=== PATIENT | female | born 1990 | race Caucasian/White ===

== ENCOUNTER 2018-04-29 12:36 | Emergency (ER) | payer SELFPAY ==
[~2018-04-29] VITALS: Ht 157.5 cm; Wt 80.0 kg
[2018-04-29 12:46] VITALS: BP 114/61; TEMP 98
[2018-04-29 13:14] LABS: COLLECTION METHOD CLEAN CATCH
[2018-04-29 13:19] LABS: MUCOUS Present /lpf; PH 5 (5-8); SQUAMOUS EPITHELIAL 0-2 /hpf; URINE APPEARANCE Clear; URINE BACTERIA None Seen /hpf; URINE BILIRUBIN Negative (NEGATIVE); URINE BLOOD Negative (NEGATIVE); URINE COLOR Yellow; URINE GLUCOSE Negative (NEGATIVE); URINE KETONE Negative (NEGATIVE); URINE LEUKOCYTE ESTERASE Negative (NEGATIVE); URINE NITRATE Negative (NEGATIVE); URINE PROTEIN(semi-quant) Negative (NEGATIVE); URINE UROBILINOGEN Negative (NEGATIVE)
[2018-04-29] MEDS ORDERED: NAPROSYN500 MG PO (15:33)
[2018-04-29] MEDS ORDERED: FLEXERIL 1010 MG/TAB PO (15:34)
[2018-04-29 15:42] VITALS: PULSE 72
== END 2018-04-29 15:44 | disposition home or self-care (01) ==
LOC: COL.ER 12:36
PROVIDERS: Emergency Medicine
DX: S39.012A Strain of muscle, fascia and tendon of lower back, initial encounter (principal); X50.0XXA Overexertion from strenuous movement or load, initial encounter
CPT/HCPCS: J1885

== ENCOUNTER 2018-09-07 17:10 | Emergency (ER) | payer SELFPAY ==
[~2018-09-07] VITALS: Ht 157.5 cm; Wt 90.0 kg
[~2018-09-07 17:10] MED LIST: FLEXERIL 1010 MG/TAB PO; NAPROSYN500 MG PO
[2018-09-07 17:21] VITALS: TEMP 97.1
[2018-09-07] MEDS ORDERED: PREDNISONE20 MG PO (18:29)
[2018-09-07] MEDS ORDERED: ZITHROMAX Z PA250 MG PO (18:29)
[2018-09-07 19:12] VITALS: BP 107/65; PULSE 94
== END 2018-09-07 19:13 | disposition home or self-care (01) ==
LOC: COL.ER 17:10
DX: J20.9 Acute bronchitis, unspecified (principal)
CPT/HCPCS: J7512

== ENCOUNTER 2018-11-27 21:29 | Emergency (ER) | payer SELFPAY ==
[~2018-11-27] VITALS: Ht 157.5 cm; Wt 81.8 kg
[~2018-11-27 21:29] MED LIST changes: +PREDNISONE20 MG PO; +ZITHROMAX Z PA250 MG PO
[2018-11-27 21:34] VITALS: TEMP 98.1
[2018-11-27 23:05] LABS: BASO # 0.1 (0.0-0.2); EOS # 0.2 (0.0-0.7); EOS % 1.9 % (0-4.0); GRAN # 5.1 (1.4-6.5); GRAN % 56.5 % (42.2-75.2); HEMATOCRIT 42.3 % (37.0-47.0); HEMOGLOBIN 14.4 g/dl (12.5-16.0); LYMPH # 3.2 (1.2-3.4); LYMPH % 35.1 % (20.0-51.0); MEAN CELL VOLUME 90 fl (80.0-100.0); MEAN CORPUSCULAR HEMOGLOBIN 31 pg (27.0-31.0); MEAN CORPUSCULAR HGB CONC 34 g/dl (33.0-37.0); MEAN PLATELET VOLUME 10.3 fl (7.4-10.4); MONO # 0.4 (0.1-0.6); MONO % 4.8 % (1.7-9.3); PLATELET COUNT 318 K/mm3 (130-400); RED BLOOD COUNT 4.72 M/mm3 (4.10-5.30)
[2018-11-27 23:13] LABS: ALBUMIN 3.6 gm/dL (3.5-5.0); BILIRUBIN,TOTAL 0.3 mg/dL (0.0-1.0); CALCIUM 8.5 mg/dL (8.4-10.2); CREATININE, serum 0.7 (0.52-1.25); POTASSIUM 3.5 mmol/L (3.4-5.0); TOTAL PROTEIN 6.2 gm/dL (6.4-8.2)
[2018-11-28 00:23] VITALS: BP 104/66; PULSE 67
== END 2018-11-28 00:17 | disposition home or self-care (01) ==
LOC: COL.ER 21:29
PROVIDERS: Nurse Practitioner
DX: R22.43 Localized swelling, mass and lump, lower limb, bilateral (principal); Z88.8 Allergy status to other drugs, medicaments and biological substances; Z98.890 Other specified postprocedural states

== ENCOUNTER 2018-12-19 22:15 | Emergency (ER) | payer SELFPAY ==
[~2018-12-19] VITALS: Ht 157.5 cm; Wt 84.1 kg
[2018-12-19 22:23] VITALS: TEMP 98.4
[2018-12-19] MEDS ORDERED: PREDNISONE20 MG PO (22:51)
[2018-12-19 23:12] LABS: STREP SCREEN NEGATIVE
[2018-12-19 23:41] VITALS: BP 120/80; PULSE 80
== END 2018-12-19 23:42 | disposition home or self-care (01) ==
LOC: COL.ER 22:15
PROVIDERS: Physician Assistant
DX: H92.02 Otalgia, left ear (principal)

== ENCOUNTER 2019-01-03 10:16 | Emergency (ER) | payer SELFPAY ==
[~2019-01-03] VITALS: Ht 157.5 cm; Wt 81.8 kg
[2019-01-03 10:25] VITALS: BP 116/70; PULSE 96; TEMP 99.1
[2019-01-03 11:12] LABS: STREP SCREEN NEGATIVE
== END 2019-01-03 12:07 | disposition home or self-care (01) ==
LOC: COL.ER 10:16
PROVIDERS: Emergency Medicine
DX: B34.9 Viral infection, unspecified (principal)
CPT/HCPCS: J1885

== ENCOUNTER 2019-01-04 23:16 | Emergency (ER) | payer SELFPAY ==
[~2019-01-04] VITALS: Ht 157.5 cm; Wt 81.8 kg
[2019-01-05 00:53] VITALS: BP 122/76; PULSE 89; TEMP 98.4
[2019-01-06] MEDS ORDERED: CEPHALEXIN500 M1 PO (20:39)
== END 2019-01-05 00:54 | disposition home or self-care (01) ==
LOC: COL.ER 23:16
DX: J06.9 Acute upper respiratory infection, unspecified (principal); Z77.22 Contact with and (suspected) exposure to environmental tobacco smoke (acute) (chronic)
CPT/HCPCS: J1885

== ENCOUNTER 2019-02-05 09:24 | Emergency (ER) | payer SELFPAY ==
[~2019-02-05] VITALS: Ht 157.5 cm; Wt 81.8 kg
[~2019-02-05 09:24] MED LIST changes: +CEPHALEXIN500 M1 PO
[2019-02-05 09:37] VITALS: BP 114/60; TEMP 98.4
[2019-02-05 11:49] VITALS: PULSE 73
== END 2019-02-05 11:50 | disposition home or self-care (01) ==
LOC: COL.ER 09:24
DX: M79.662 Pain in left lower leg (principal); Z87.891 Personal history of nicotine dependence

== ENCOUNTER 2019-05-04 17:18 | Emergency (ER) | payer SELFPAY ==
[~2019-05-04] VITALS: Ht 157.5 cm; Wt 84.1 kg
[2019-05-04 17:31] VITALS: BP 114/67
[2019-05-04 17:57] LABS: COLLECTION METHOD CLEAN CATCH
[2019-05-04 18:13] LABS: MUCOUS Present /lpf; PH 5 (5-8); URINE APPEARANCE Hazy; URINE BACTERIA None Seen /hpf; URINE BILIRUBIN Negative (NEGATIVE); URINE BLOOD Negative (NEGATIVE); URINE COLOR Yellow; URINE GLUCOSE Negative (NEGATIVE); URINE KETONE Negative (NEGATIVE); URINE LEUKOCYTE ESTERASE Negative (NEGATIVE); URINE NITRATE Negative (NEGATIVE); URINE PROTEIN(semi-quant) Negative (NEGATIVE); URINE UROBILINOGEN Negative (NEGATIVE)
[2019-05-04 18:23] LABS: BASO # 0.1 (0.0-0.2); BASO % 0.7 % (0.0-2.0); EOS # 0.1 (0.0-0.7); EOS % 1.2 % (0-4.0); GRAN # 6.7 (1.4-6.5); GRAN % 71.3 % (42.2-75.2); HEMATOCRIT 42.8 % (37.0-47.0); HEMOGLOBIN 14.2 g/dl (12.5-16.0); LYMPH % 21.5 % (20.0-51.0); MEAN CELL VOLUME 91 fl (80.0-100.0); MEAN CORPUSCULAR HEMOGLOBIN 30 pg (27.0-31.0); MEAN CORPUSCULAR HGB CONC 33 g/dl (33.0-37.0); MEAN PLATELET VOLUME 10.6 fl (7.4-10.4); MONO # 0.5 (0.1-0.6); MONO % 4.8 % (1.7-9.3); PLATELET COUNT 303 K/mm3 (130-400); RED BLOOD COUNT 4.72 M/mm3 (4.10-5.30); REDCELL DISTRIBUTION WIDTH-CV 13.1 % (11.5-14.5)
[2019-05-04 18:33] LABS: ALANINE AMINOTRANSFERASE 24 U/L (9-52); ALBUMIN 4.4 gm/dL (3.5-5.0); ALKALINE PHOSPHATASE 80 U/L (50-136); ANION GAP 8 mmol/L (7-16); AST,SGOT 21 U/L (15-37); BILIRUBIN,TOTAL 0.5 mg/dL (0.0-1.0); BLOOD UREA NITROGEN 11 mg/dL (7-17); CALCIUM 9.1 mg/dL (8.4-10.2); CARBON DIOXIDE 26 mmol/L (22-30); CHLORIDE 104 mmol/L (98-107); GLUCOSE 95 mg/dL (74-106); LIPASE 22 U/L (23-300); POTASSIUM 3.5 mmol/L (3.4-5.0); SODIUM 139 mmol/L (137-145); TOTAL PROTEIN 7.5 gm/dL (6.4-8.2)
[2019-05-04 18:43] LABS: C-REACTIVE PROTEIN < 0.5 mg/dL (0.0-0.9)
[2019-05-04 19:02] VITALS: PULSE 70; TEMP 98.6
== END 2019-05-04 19:07 | disposition home or self-care (01) ==
LOC: COL.ER 17:18
PROVIDERS: Physician Assistant
DX: R14.0 Abdominal distension (gaseous) (principal)

== ENCOUNTER 2019-05-10 22:25 | Emergency (ER) | payer SELFPAY ==
[~2019-05-10] VITALS: Ht 157.5 cm; Wt 84.1 kg
[2019-05-10 22:34] VITALS: BP 122/71; TEMP 98
[2019-05-10 23:45] VITALS: PULSE 67
== END 2019-05-10 23:45 | disposition home or self-care (01) ==
LOC: COL.ER 22:25
DX: H10.9 Unspecified conjunctivitis (principal)

== ENCOUNTER 2022-07-08 22:29 | Emergency (ER) | payer SELFPAY ==
[~2022-07-08] VITALS: Ht 157.5 cm; Wt 100.0 kg
[2022-07-08 22:34] VITALS: TEMP 98.4
[2022-07-09 00:12] VITALS: BP 124/88; PULSE 98
== END 2022-07-09 00:12 | disposition home or self-care (01) ==
LOC: COL.ER 22:29
DX: L98.9 Disorder of the skin and subcutaneous tissue, unspecified (principal); M25.532 Pain in left wrist; Z87.891 Personal history of nicotine dependence